=== PATIENT | male | born 1935 | race African-American/Black ===

== ENCOUNTER 2017-12-02 07:26 | Day surgery (SDC) | payer OTHER ==
[2017-11-30 13:12] VITALS: BMI 29.8
[~2017-12-02 07:26] MED LIST: ACETAMINOPHEN 325 MG TABLET (FP) PO PRN; CYCLOPENTOLATE HCL 1% OPHTH SOLN 2 ML BOTTLE OP SCH; KETOROLAC TROMETHAMINE 0.5% EYE DROP 1 DROP DROPS OP SCH; OFLOXACIN 0.3% OPHTHALMIC SOLUTION 5 ML BOTTLE OP SCH; PHENYLEPHRINE 2.5% OPHTH SOLN 15 ML BOTTLE OP SCH; TROPICAMIDE 1% OPHTH SOLN 15 ML BOTTLE OP SCH
[2017-12-02] MEDS ORDERED: CYCLOPENTOLATE HCL 1% OPHTH SOLN 2 ML BOTTLE ONE (07:38)
[2017-12-02] MEDS ORDERED: OFLOXACIN 0.3% OPHTHALMIC SOLUTION 5 ML BOTTLE ONE (07:38)
[2017-12-02] MEDS ORDERED: PHENYLEPHRINE 2.5% OPHTH SOLN 15 ML BOTTLE ONE (07:39)
[2017-12-02] MEDS ORDERED: TROPICAMIDE 1% OPHTH SOLN 15 ML BOTTLE ONE (07:39)
[2017-12-02] MEDS ORDERED: KETOROLAC TROMETHAMINE 0.5% EYE DROP 1 DROP DROPS ONE (07:39)
[2017-12-02 08:03] VITALS: BP 186/99; PULSE 77; TEMP 98
== END 2017-12-02 08:24 | disposition home or self-care (01) ==
LOC: JASU-SURG 07:26
PROVIDERS: ATTEND Ophthalmology
PROC: 3E013GC Introduction of Other Therapeutic Substance into Subcutaneous Tissue, Percutaneous Approach (ICD-10-PCS; principal; 2017-12-02)
DX: Z53.8 Procedure and treatment not carried out for other reasons (principal)
CPT/HCPCS: 82962

== ENCOUNTER 2017-12-16 07:33 | Day surgery (SDC) | payer OTHER ==
[2017-12-15 13:17] VITALS: BMI 29.8
[~2017-12-16 07:33] MED LIST changes: +ACETYLCHOLINE 1:100 INTRA-OCUL 20 MG/2 ML KIT IO ONE; +BUPIVACAINE HCL/PF 0.5% (5MG/ML) 10 ML VIAL RB ONE; +CHONDROITIN SU A/HYALUR SOD 1 KIT IO ONE; -CYCLOPENTOLATE HCL 1% OPHTH SOLN 2 ML BOTTLE OP SCH; +EPINEPHrine/PF 1 MG/1 ML (1:1,000) AMPULE IO ONE; +HYALURONATE SODIUM 14 MG/ML DISP.SYRIN IO ONE; -KETOROLAC TROMETHAMINE 0.5% EYE DROP 1 DROP DROPS OP SCH; +LIDOCAINE HCL 1% PRESERVATIVE FREE - 30ML VIAL IO ONE; +LIDOCAINE HCL 2% JELLY (5 ML/TUBE) TP ONE; -OFLOXACIN 0.3% OPHTHALMIC SOLUTION 5 ML BOTTLE OP SCH; -PHENYLEPHRINE 2.5% OPHTH SOLN 15 ML BOTTLE OP SCH; -TROPICAMIDE 1% OPHTH SOLN 15 ML BOTTLE OP SCH; +TRYPAN BLUE 0.5 ML DISP.SYRIN IO ONE
[2017-12-16] MEDS ORDERED: OFLOXACIN 0.3% OPHTHALMIC SOLUTION 5 ML BOTTLE ONE (07:50)
[2017-12-16] MEDS ORDERED: PHENYLEPHRINE 2.5% OPHTH SOLN 15 ML BOTTLE ONE (07:51)
[2017-12-16] MEDS ORDERED: KETOROLAC TROMETHAMINE 0.5% EYE DROP 1 DROP DROPS ONE (07:51)
[2017-12-16] MEDS ORDERED: CYCLOPENTOLATE HCL 1% OPHTH SOLN 2 ML BOTTLE ONE (07:51)
[2017-12-16] MEDS ORDERED: TROPICAMIDE 1% OPHTH SOLN 15 ML BOTTLE ONE (07:51)
[2017-12-16] MEDS: CYCLOPENTOLATE HCL 1% OPHTH SOLN 2 ML BOTTLE OP SCH ×3 (08:00→08:30)
[2017-12-16] MEDS: KETOROLAC TROMETHAMINE 0.5% EYE DROP 1 DROP DROPS OP SCH ×3 (08:00→08:30)
[2017-12-16] MEDS: OFLOXACIN 0.3% OPHTHALMIC SOLUTION 5 ML BOTTLE OP SCH ×3 (08:00→08:30)
[2017-12-16] MEDS: TROPICAMIDE 1% OPHTH SOLN 15 ML BOTTLE OP SCH ×2 (08:00→08:30)
[2017-12-16] MEDS ORDERED: PHENYLEPHRINE/KETOROLAC 4 ML VIAL IO ONE (08:00)
[2017-12-16] MEDS: PHENYLEPHRINE 2.5% OPHTH SOLN 15 ML BOTTLE OP SCH ×3 (08:00→08:30)
[2017-12-16] MEDS ORDERED: MIDAZOLAM HCL 2 MG/2 ML SINGLE DOSE VIAL ONE (09:30)
[2017-12-16] MEDS ORDERED: LIDOCAINE HCL/PF 2% SDV 5ML VIAL ONE (09:35)
[2017-12-16] MEDS ORDERED: PROPOFOL 20 ML ONE (09:35)
[2017-12-16] MEDS ORDERED: LIDOCAINE HCL/PF 2% SDV 5ML VIAL PNB ONE ×2 (09:40→09:41)
[2017-12-16] MEDS ORDERED: BUPIVACAINE HCL/PF 0.75% 10 ML VIAL PNB ONE ×2 (09:40→09:41)
[2017-12-16] MEDS ORDERED: POVIDONE-IODINE 5% OPHTHALMIC PREP 30 ML SOLUTION OS ONE (09:45)
[2017-12-16] MEDS ORDERED: LIDOCAINE HCL 1% PRESERVATIVE FREE - 30ML VIAL IO ONE (09:53)
[2017-12-16] MEDS ORDERED: CHONDROITIN SU A/HYALUR SOD 1 KIT IO ONE (09:54)
[2017-12-16] MEDS ORDERED: EPINEPHrine/PF 1 MG/1 ML (1:1,000) AMPULE IO ONE (09:56)
[2017-12-16] MEDS ORDERED: ACETAMINOPHEN 325 MG TABLET (FP) ONE (10:47)
[2017-12-16 11:21] VITALS: BP 144/85; PULSE 77; TEMP 97.7
[2017-12-16] MEDS ORDERED: LIDOCAINE HCL/PF 1% SDV 5ML VIAL ONE (11:25)
--- NOTE | 2017-12-16 11:29 | SPEC ---
DATE OF OPERATION: 12/16/2017 PREOPERATIVE DIAGNOSIS: Cataract, left eye. POSTOPERATIVE DIAGNOSIS: Cataract, left eye. PROCEDURE: Phacoemulsification of left cataract with posterior chamber intraocular lens implantation, lens used SN60WF, 21.0 diopter power, serial No. [id number]. SURGEON: Tj Teran M.D. ANESTHESIA: Peribulbar/Modified Van Lint/MAC. COMPLICATIONS: None. PROCEDURE: The patient was brought to the operating room and correctly identified along with the operative site and a correct intraocular lens banuelos. The patient was then given a peribulbar block under sedation with 5 mL of a 1:1 mixture of 2% Lidocaine and 0.5% Bupivacaine. Two to 3 mL of the same mixture was given as a modified Van Lint block. The eye was then prepped and draped in the usual sterile fashion including 5% Betadine solution in the conjunctival sac and an eyelid drape. An eyelid speculum was then placed into the eye. A paracentesis port was created. Viscoelastic was injected to inflate the anterior chamber. A temporal clear corneal wound was created. A continuous circular capsulorrhexis was performed. The nucleus was then hydro-dissected and removed phacoemulsification via the [id number] approach. The remaining cortical material was irrigated and aspirated from the eye. Viscoelastic was injected to inflate the capsular bag. The lens was injected into the capsular bag. Viscoelastic was then irrigated and aspirated from the eye. The intraocular lens was noted to be well centered and covered by the anterior capsular border. All wounds were found to be watertight. Topical Vancomycin was given. The eye patch and shield were placed. The patient was discharged from the operating room in stable condition. Ronald ALEXANDER/[id number]
[2017-12-16] MEDS ORDERED: CHONDROITIN SU A/HYALUR SOD 1 KIT ONE (11:32)
== END 2017-12-16 11:30 | disposition home or self-care (01) ==
LOC: JASU-SURG 07:33
PROVIDERS: ATTEND Ophthalmology
PROC: 08RK3JZ Replacement of Left Lens with Synthetic Substitute, Percutaneous Approach (ICD-10-PCS; principal; 2017-12-16 09:00)
DX: H26.9 Unspecified cataract (principal)
CPT/HCPCS: 82962

== ENCOUNTER 2018-01-27 07:28 | Day surgery (SDC) | payer OTHER ==
[2018-01-26 13:56] VITALS: BMI 29.8
[~2018-01-27 07:28] MED LIST changes: -ACETYLCHOLINE 1:100 INTRA-OCUL 20 MG/2 ML KIT IO ONE; -BUPIVACAINE HCL/PF 0.5% (5MG/ML) 10 ML VIAL RB ONE; -CHONDROITIN SU A/HYALUR SOD 1 KIT IO ONE; -EPINEPHrine/PF 1 MG/1 ML (1:1,000) AMPULE IO ONE; -HYALURONATE SODIUM 14 MG/ML DISP.SYRIN IO ONE; -LIDOCAINE HCL 1% PRESERVATIVE FREE - 30ML VIAL IO ONE; -LIDOCAINE HCL 2% JELLY (5 ML/TUBE) TP ONE; -TRYPAN BLUE 0.5 ML DISP.SYRIN IO ONE
[2018-01-27] MEDS ORDERED: OFLOXACIN 0.3% OPHTHALMIC SOLUTION 5 ML BOTTLE ONE (07:38)
[2018-01-27] MEDS ORDERED: BUPIVACAINE HCL/PF 0.75% 10 ML VIAL ONE (07:39)
[2018-01-27] MEDS ORDERED: CYCLOPENTOLATE HCL 1% OPHTH SOLN 2 ML BOTTLE ONE (07:39)
[2018-01-27] MEDS ORDERED: KETOROLAC TROMETHAMINE 0.5% EYE DROP 1 DROP DROPS ONE (07:39)
[2018-01-27] MEDS ORDERED: TROPICAMIDE 1% OPHTH SOLN 15 ML BOTTLE ONE (07:39)
[2018-01-27] MEDS ORDERED: PHENYLEPHRINE 2.5% OPHTH SOLN 15 ML BOTTLE ONE (07:39)
[2018-01-27] MEDS ORDERED: LIDOCAINE HCL/PF 2% SDV 5ML VIAL ONE (07:39)
[2018-01-27] MEDS: PHENYLEPHRINE 2.5% OPHTH SOLN 15 ML BOTTLE OP SCH ×3 (07:45→07:55)
[2018-01-27] MEDS: CYCLOPENTOLATE HCL 1% OPHTH SOLN 2 ML BOTTLE OP SCH ×2 (07:45→07:50)
[2018-01-27] MEDS ORDERED: PHENYLEPHRINE/KETOROLAC 4 ML VIAL IO ONE (07:45)
[2018-01-27] MEDS: OFLOXACIN 0.3% OPHTHALMIC SOLUTION 5 ML BOTTLE OP SCH ×3 (07:45→07:55)
[2018-01-27] MEDS: TROPICAMIDE 1% OPHTH SOLN 15 ML BOTTLE OP SCH ×3 (07:45→07:55)
[2018-01-27] MEDS: KETOROLAC TROMETHAMINE 0.5% EYE DROP 1 DROP DROPS OP SCH ×3 (07:45→07:55)
[2018-01-27] MEDS ORDERED: MIDAZOLAM HCL 2 MG/2 ML SINGLE DOSE VIAL ONE (08:40)
[2018-01-27] MEDS ORDERED: PROPOFOL 20 ML ONE (08:56)
[2018-01-27] MEDS ORDERED: LIDOCAINE HCL/PF 2% SDV 5ML VIAL PNB ONE ×2 (09:08→09:09)
[2018-01-27] MEDS ORDERED: BUPIVACAINE HCL/PF 0.75% 10 ML VIAL PNB ONE ×2 (09:08→09:09)
[2018-01-27] MEDS ORDERED: CHONDROITIN SU A/HYALUR SOD 1 KIT IO ONE (09:19)
[2018-01-27] MEDS ORDERED: VANCOMYCIN 500 MG VIAL (RESTRICTED TO ID ONLY) IVPB ONE (09:24)
[2018-01-27] MEDS ORDERED: ACETAMINOPHEN 325 MG TABLET (FP) ONE (09:58)
[2018-01-27 10:34] VITALS: BP 145/86; PULSE 79; TEMP 97.7
--- NOTE | 2018-01-27 10:39 | SPEC ---
DATE OF OPERATION: 01/27/2018 PREOPERATIVE DIAGNOSIS: Cataract, right eye. POSTOPERATIVE DIAGNOSIS: Cataract, right eye. PROCEDURE: OPERATION: Phacoemulsification of right cataract with posterior chamber intraocular lens implantation, lens used SN60WF, 21.0 diopter power, serial No. [id number], capsular staining with Trypan blue. SURGEON: Dorothy Martinez M.D. ANESTHESIA: Peribulbar/Modified Van Lint/MAC. COMPLICATIONS: None. DESCRIPTION OF PROCEDURE: The patient was brought to the operating room and correctly identified along with the operative site as well as correct intraocular lens banuelos. The patient was then prepped and draped in the usual sterile fashion including 5% Betadine solution in the conjunctival sac and an eyelid drape. An eyelid speculum was then placed into the operative eye. The eye was inspected and a poor red reflex was noted. A paracentesis port was created and .5 mL of intracameral preservative-free Lidocaine 1% was given. Beneath an air bubble, the capsule was then stained with Trypan blue. The Trypan blue was then irrigated from the eye with balanced salt solution (BBS). Viscoelastic was injected to inflate the anterior chamber. A temporal clear corneal would was created. A continuous circular capsulorrhexis was performed. The nucleus was then hydro-dissected and hydro-delineated was BSS and removed with phacoemulsification via [id number] approach. The remaining cortical material was irrigated and aspirated from the eye. Viscoelastic was injected in the anterior chamber to inflate the capsular bag. The intraocular lens was then injected into the bag. The Viscoelastic was irrigated and aspirated from the eye. All wounds were tested and found to be watertight. No suture was placed. The intraocular lens was noted to be well centered and covered by the anterior capsular border. Topical Vancomycin was given. The eye was patched and shielded. The patient was discharged from the operating room in stable condition. DOROTHY MARTINEZ M.D. HL/[id number]
[2018-01-27] MEDS ORDERED: CHONDROITIN SU A/HYALUR SOD 1 KIT ONE (11:59)
== END 2018-01-27 10:45 | disposition home or self-care (01) ==
LOC: JASU-SURG 07:28
PROVIDERS: ATTEND Ophthalmology
PROC: 08RJ3JZ Replacement of Right Lens with Synthetic Substitute, Percutaneous Approach (ICD-10-PCS; principal; 2018-01-27 09:00)
DX: H26.9 Unspecified cataract (principal)
CPT/HCPCS: 82962

== ENCOUNTER 2020-11-03 16:28 | Inpatient (IN) | payer OTHER ==
[2020-11-03] MEDS ORDERED: LACTATED RINGERS SOLUTION 1,000 ML IV STA (16:52)
[2020-11-03] MEDS ORDERED: ACETAMINOPHEN 1000 MG/100 ML VIAL (NON FORMULARY) IVPB ONE ×2 (16:53→17:05)
[2020-11-03] MEDS ORDERED: ACETAMINOPHEN INJECTION 100 ML IVPB ONE (17:35)
[2020-11-03 17:45] LABS: BASO % 0.4 % (0-2.0); HEMOGLOBIN 11.9 GM/dL (11.7-16.9); LYMPH % 7.1 % (8-40); MCH 28.2 pg (25.7-33.7); MCHC 32.9 g/dl (32.0-35.9); MEAN CELL VOLUME 85.7 fl (80-96); MEAN PLT VOLUME 8.6 fl (7.5-11.1); MONO % 6.5 % (3.8-10.2); PLATELET COUNT 234 10^3/uL (134-434); RDW 13.8 % (11.9-15.9); WHITE BLOOD COUNT 12.1 K/mm3 (4.0-10.0)
[2020-11-03 17:50] LABS: INR 1.11 (0.83-1.09); PROTHROMBIN TIME (PATIENT) 13.7 SEC (9.7-13.0); VENOUS BASE EXCESS -5.2 mmol/L (-2-2); VENOUS PCO2 31.2 mmHg (38-52); VENOUS PH 7.393 (7.310-7.410)
[2020-11-03 17:52] LABS: ACTIVATED PTT 30.8 SECONDS (25.2-36.5)
[2020-11-03] MEDS ORDERED: LOSARTAN POTASSIUM 25 MG TABLET PO ONE (18:04)
[2020-11-03] MEDS ORDERED: amLODIPine BESYLATE 10 MG TABLET (FP) PO ONE (18:04)
[2020-11-03 18:08] LABS: CALCIUM 8.5 mg/dL (8.5-10.1)
[2020-11-03 18:09] LABS: BLOOD UREA NITROGEN 26.2 mg/dL (7-18)
[2020-11-03 18:14] LABS: BILIRUBIN,TOTAL 0.6 mg/dL (0.2-1)
[2020-11-03 18:18] LABS: LACTIC ACID 2.1 mmol/L (0.4-2.0)
[2020-11-03] MEDS ORDERED: LOSARTAN POTASSIUM 50 MG TABLET ONE (18:18)
[2020-11-03] MEDS ORDERED: amLODIPine BESYLATE 5 MG TABLET (FP) ONE (18:19)
[2020-11-03] MEDS ORDERED: CEFTRIAXONE 1,000 MG in DEXTROSE 5%-WATER - 50 ML IVPB ONE (21:04)
[2020-11-03] MEDS ORDERED: AZITHROMYCIN 500 MG TABLET PO ONE (21:04)
[2020-11-03] MEDS ORDERED: AZITHROMYCIN 250 MG TABLET ONE (23:43)
[2020-11-03] MEDS ORDERED: CEFTRIAXONE 1 GM/50 ML BAG ONE (23:43)
[2020-11-04] MEDS ORDERED: ALBUTEROL SO4 2.5/IPRATROPIUM 0.5 INH SOL 3 ML VIAL.NEB. NEB ONE (00:59)
[2020-11-04] MEDS ORDERED: predniSONE 20 MG TABLET (UD) PO ONE (00:59)
[2020-11-04] MEDS ORDERED: SODIUM CHLORIDE 1,000 ML IV SCH ×2 (01:00→20:12)
[2020-11-04] MEDS ORDERED: ACETAMINOPHEN 1000 MG/100 ML VIAL (NON FORMULARY) IVPB PRN ×2 (01:02→20:12)
[2020-11-04] MEDS ORDERED: MELATONIN 5 MG TABLETS PO PRN ×2 (01:03→20:12)
[2020-11-04] MEDS ORDERED: predniSONE 20 MG TABLET (UD) ONE (02:25)
[2020-11-04 02:36] LABS: EPI CELLS 14 /uL (0-25.1); HYALINE CASTS 4 /uL (0-3.1); URINE APPEARANCE CLEAR; URINE BACTERIA 10 /uL (0-1359); URINE BILIRUBIN NEGATIVE (NEGATIVE); URINE COLOR YELLOW; URINE GLUCOSE (UA) NEGATIVE (NEGATIVE); URINE KETONE NEGATIVE (NEGATIVE); URINE LEUK ESTERASE NEGATIVE (NEGATIVE); URINE NITRITE NEGATIVE (NEGATIVE); URINE PROTEIN 4+ (NEGATIVE); URINE RBC 18 /uL (0-23.9); URINE WBC 13 /uL (0-25.8)
[2020-11-04 04:20] VITALS: BMI 30.7
[2020-11-04] MEDS: HEPARIN NA (PORCINE) 5,000 UNITS/ML 1ML VIAL SQ SCH ×3 (06:45→21:17)
[2020-11-04] MEDS: POLYETHYLENE GLYCOL 3350 119 GM BTL PO SCH ×2 (07:01→15:08)
[2020-11-04] MEDS: INSULIN SLIDING SCALE (NOVOLOG) 1 VIAL SQ SCH ×4 (07:04→21:26)
[2020-11-04] MEDS: POLYETHYLENE GLYCOL (HEALTHYLAX) 3350 17 GM PACKET PO SCH ×3 (07:05→21:17)
[2020-11-04 08:32] LABS: HEMATOCRIT 33.9 % (35.4-49); HEMOGLOBIN 11.2 GM/dL (11.7-16.9); MCH 28.1 pg (25.7-33.7); MCHC 33.1 g/dl (32.0-35.9); PLATELET COUNT 192 10^3/uL (134-434); RBC 3.99 M/mm3 (4.00-5.60); RDW 13.9 % (11.9-15.9); WHITE BLOOD COUNT 11.8 K/mm3 (4.0-10.0)
[2020-11-04 09:04] LABS: CALCIUM 8.1 mg/dL (8.5-10.1)
[2020-11-04 09:05] LABS: ALBUMIN 2.6 g/dl (3.4-5.0); BLOOD UREA NITROGEN 28.2 mg/dL (7-18)
[2020-11-04 09:06] LABS: MAGNESIUM 1.6 mg/dL (1.8-2.4)
[2020-11-04 09:07] LABS: CREATININE 2.8 mg/dL (0.55-1.3)
[2020-11-04 09:08] LABS: PHOSPHOROUS 3.2 mg/dL (2.5-4.9)
[2020-11-04 09:09] LABS: BILIRUBIN,TOTAL 1.2 mg/dL (0.2-1); TOT PROT 7.2 g/dl (6.4-8.2)
[2020-11-04] MEDS ORDERED: AZITHROMYCIN IVPB 500 MG/250 ML BAG IVPB SCH (10:00)
[2020-11-04] MEDS ORDERED: LABETALOL HCL 100 MG TABLET (FP) PO SCH (10:00)
[2020-11-04] MEDS ORDERED: CEFTRIAXONE 1 GM in DEXTROSE 5%-WATER - 50 ML IVPB SCH (10:00)
[2020-11-04] MEDS ORDERED: amLODIPine BESYLATE 10 MG TABLET (FP) PO SCH (10:00)
[2020-11-04] MEDS ORDERED: cefTRIAXone SODIUM 1 GM VIAL ONE (10:17)
[2020-11-04] MEDS ORDERED: DEXTROSE 5%-WATER - 50 ML IVPB ONE (10:17)
[2020-11-04 12:51] LABS: ANISOCYTOSIS 0; MACROCYTOSIS 0; PLATELET ESTIMATE NORMAL
[2020-11-04 16:55] LABS: EPI CELLS 9 /uL (0-25.1); HYALINE CASTS 2 /uL (0-3.1); URINE APPEARANCE CLEAR; URINE BACTERIA 27 /uL (0-1359); URINE BILIRUBIN NEGATIVE (NEGATIVE); URINE COLOR YELLOW; URINE GLUCOSE (UA) NEGATIVE (NEGATIVE); URINE KETONE NEGATIVE (NEGATIVE); URINE LEUK ESTERASE NEGATIVE (NEGATIVE); URINE NITRITE NEGATIVE (NEGATIVE); URINE PROTEIN 3+ (NEGATIVE); URINE RBC 42 /uL (0-23.9); URINE WBC 8 /uL (0-25.8)
[2020-11-04] MEDS: LABETALOL HCL 100 MG TABLET (FP) PO SCH (21:17)
[2020-11-04] MEDS: ATORVASTATIN CA 20 MG TABLET (FP) PO SCH (21:17)
[2020-11-04] MEDS ORDERED: ATORVASTATIN CA 20 MG TABLET (FP) PO SCH (22:00)
[2020-11-04] MEDS ORDERED: POLYETHYLENE GLYCOL 3350 119 GM BTL PO SCH (22:00)
[2020-11-05] MEDS ORDERED: ACETAMINOPHEN 500 MG TABLET (FP) PO ONE (04:33)
[2020-11-05] MEDS: HEPARIN NA (PORCINE) 5,000 UNITS/ML 1ML VIAL SQ SCH ×3 (06:12→22:54)
[2020-11-05] MEDS: POLYETHYLENE GLYCOL (HEALTHYLAX) 3350 17 GM PACKET PO SCH ×3 (06:13→22:56)
[2020-11-05] MEDS: INSULIN SLIDING SCALE (NOVOLOG) 1 VIAL SQ SCH ×4 (06:17→23:06)
[2020-11-05] MEDS ORDERED: cefTRIAXone SODIUM 1 GM VIAL ONE (09:40)
[2020-11-05] MEDS ORDERED: DEXTROSE 5%-WATER - 50 ML IVPB ONE (09:40)
[2020-11-05] MEDS ORDERED: PT OWN MED DRAWER 7, Y5N ONE (09:40)
[2020-11-05] MEDS: amLODIPine BESYLATE 10 MG TABLET (FP) PO SCH (10:45)
[2020-11-05] MEDS: LABETALOL HCL 100 MG TABLET (FP) PO SCH ×2 (10:45→22:55)
[2020-11-05] MEDS: CEFTRIAXONE 1 GM in DEXTROSE 5%-WATER - 50 ML IVPB SCH (10:46)
[2020-11-05 10:52] LABS: BLOOD UREA NITROGEN 28.1 mg/dL (7-18); CALCIUM 7.9 mg/dL (8.5-10.1)
[2020-11-05 10:53] LABS: ALBUMIN 2.3 g/dl (3.4-5.0)
[2020-11-05 10:56] LABS: CREATININE 2.7 mg/dL (0.55-1.3)
[2020-11-05 10:57] LABS: TOT PROT 6.7 g/dl (6.4-8.2)
[2020-11-05 10:58] LABS: BILIRUBIN,TOTAL 0.4 mg/dL (0.2-1)
[2020-11-05] MEDS: AZITHROMYCIN IVPB 500 MG/250 ML BAG IVPB SCH (11:39)
[2020-11-05] MEDS ORDERED: FUROSEMIDE 40 MG/4 ML INJECTABLE VIAL IVPUSH ONE (14:30)
[2020-11-05] MEDS: ACETAMINOPHEN 325 MG TABLET (FP) PO PRN (18:37)
[2020-11-05] MEDS: ATORVASTATIN CA 20 MG TABLET (FP) PO SCH (22:55)
[2020-11-06] MEDS: HEPARIN NA (PORCINE) 5,000 UNITS/ML 1ML VIAL SQ SCH ×3 (05:55→21:09)
[2020-11-06] MEDS: INSULIN SLIDING SCALE (NOVOLOG) 1 VIAL SQ SCH ×4 (06:04→21:10)
[2020-11-06] MEDS: POLYETHYLENE GLYCOL (HEALTHYLAX) 3350 17 GM PACKET PO SCH ×3 (06:43→21:10)
[2020-11-06 07:51] LABS: HEMATOCRIT 34.4 % (35.4-49); HEMOGLOBIN 11.5 GM/dL (11.7-16.9); MCH 28.3 pg (25.7-33.7); MCHC 33.5 g/dl (32.0-35.9); MEAN CELL VOLUME 84.6 fl (80-96); MEAN PLT VOLUME 8.5 fl (7.5-11.1); PLATELET COUNT 243 10^3/uL (134-434); RBC 4.06 M/mm3 (4.00-5.60); RDW 13.9 % (11.9-15.9); WHITE BLOOD COUNT 7.5 K/mm3 (4.0-10.0)
[2020-11-06 08:10] LABS: CALCIUM 8.6 mg/dL (8.5-10.1)
[2020-11-06 08:14] LABS: CREATININE 2.6 mg/dL (0.55-1.3)
[2020-11-06] MEDS ORDERED: cefTRIAXone SODIUM 1 GM VIAL ONE (09:02)
[2020-11-06] MEDS ORDERED: DEXTROSE 5%-WATER - 50 ML IVPB ONE (09:02)
[2020-11-06] MEDS: CEFTRIAXONE 1 GM in DEXTROSE 5%-WATER - 50 ML IVPB SCH (09:11)
[2020-11-06] MEDS: amLODIPine BESYLATE 10 MG TABLET (FP) PO SCH (09:11)
[2020-11-06] MEDS: LABETALOL HCL 100 MG TABLET (FP) PO SCH ×2 (09:11→21:10)
[2020-11-06] MEDS: AZITHROMYCIN IVPB 500 MG/250 ML BAG IVPB SCH (09:27)
[2020-11-06] MEDS ORDERED: FUROSEMIDE 40 MG/4 ML INJECTABLE VIAL IVPUSH ONE (13:20)
[2020-11-06] MEDS: ACETAMINOPHEN 325 MG TABLET (FP) PO PRN (15:03)
[2020-11-06] MEDS: ATORVASTATIN CA 20 MG TABLET (FP) PO SCH (21:09)
[2020-11-07] MEDS: INSULIN SLIDING SCALE (NOVOLOG) 1 VIAL SQ SCH ×4 (06:06→21:41)
[2020-11-07] MEDS: POLYETHYLENE GLYCOL (HEALTHYLAX) 3350 17 GM PACKET PO SCH ×3 (06:14→21:41)
[2020-11-07] MEDS: HEPARIN NA (PORCINE) 5,000 UNITS/ML 1ML VIAL SQ SCH ×3 (06:15→21:39)
[2020-11-07 08:12] LABS: ALBUMIN 2.1 g/dl (3.4-5.0); BLOOD UREA NITROGEN 29.3 mg/dL (7-18); CALCIUM 8.5 mg/dL (8.5-10.1)
[2020-11-07 08:16] LABS: CREATININE 2.5 mg/dL (0.55-1.3)
[2020-11-07 08:17] LABS: BILIRUBIN,TOTAL 0.4 mg/dL (0.2-1); TOT PROT 6.6 g/dl (6.4-8.2)
[2020-11-07] MEDS ORDERED: cefTRIAXone SODIUM 1 GM VIAL ONE (09:01)
[2020-11-07] MEDS ORDERED: DEXTROSE 5%-WATER - 50 ML IVPB ONE (09:01)
[2020-11-07] MEDS: CEFTRIAXONE 1 GM in DEXTROSE 5%-WATER - 50 ML IVPB SCH (11:06)
[2020-11-07] MEDS: AZITHROMYCIN IVPB 500 MG/250 ML BAG IVPB SCH (11:06)
[2020-11-07] MEDS: amLODIPine BESYLATE 10 MG TABLET (FP) PO SCH (11:07)
[2020-11-07] MEDS: LABETALOL HCL 100 MG TABLET (FP) PO SCH ×2 (11:07→21:39)
[2020-11-07] MEDS: ALBUTEROL SO4 2.5/IPRATROPIUM 0.5 INH SOL 3 ML VIAL.NEB. NEB SCH ×2 (15:46→20:24)
[2020-11-07] MEDS: ATORVASTATIN CA 20 MG TABLET (FP) PO SCH (21:39)
[2020-11-08] MEDS: ACETAMINOPHEN 325 MG TABLET (FP) PO PRN (03:03)
[2020-11-08] MEDS: POLYETHYLENE GLYCOL (HEALTHYLAX) 3350 17 GM PACKET PO SCH ×3 (05:38→21:24)
[2020-11-08] MEDS: HEPARIN NA (PORCINE) 5,000 UNITS/ML 1ML VIAL SQ SCH ×3 (05:39→21:24)
[2020-11-08] MEDS: INSULIN SLIDING SCALE (NOVOLOG) 1 VIAL SQ SCH ×4 (06:00→21:27)
[2020-11-08] MEDS ORDERED: ACETAMINOPHEN 325 MG TABLET (FP) PO PRN (07:01)
[2020-11-08] MEDS ORDERED: MELATONIN 5 MG TABLETS PO PRN (07:01)
[2020-11-08] MEDS: ALBUTEROL SO4 2.5/IPRATROPIUM 0.5 INH SOL 3 ML VIAL.NEB. NEB SCH ×4 (08:05→20:27)
[2020-11-08] MEDS ORDERED: INSULIN (NOVOLOG) ASPART 100 UNITS/ML 10ML VIAL ONE (09:09)
[2020-11-08] MEDS ORDERED: cefTRIAXone SODIUM 1 GM VIAL ONE (09:10)
[2020-11-08] MEDS ORDERED: DEXTROSE 5%-WATER - 50 ML IVPB ONE (09:10)
[2020-11-08] MEDS: LABETALOL HCL 100 MG TABLET (FP) PO SCH ×2 (09:52→21:24)
[2020-11-08] MEDS: CEFTRIAXONE 1 GM in DEXTROSE 5%-WATER - 50 ML IVPB SCH (09:53)
[2020-11-08] MEDS: amLODIPine BESYLATE 10 MG TABLET (FP) PO SCH (09:53)
[2020-11-08] MEDS: AZITHROMYCIN IVPB 500 MG/250 ML BAG IVPB SCH (10:56)
[2020-11-08] MEDS ORDERED: FUROSEMIDE 40 MG/4 ML INJECTABLE VIAL IVPUSH ONE (11:15)
[2020-11-08 12:08] LABS: ANTIGLOMERULAR BASEMENT MEN.AB 2 units (0-20)
[2020-11-08] MEDS: ATORVASTATIN CA 20 MG TABLET (FP) PO SCH (21:24)
[2020-11-09] MEDS: POLYETHYLENE GLYCOL (HEALTHYLAX) 3350 17 GM PACKET PO SCH ×3 (06:09→21:54)
[2020-11-09] MEDS: HEPARIN NA (PORCINE) 5,000 UNITS/ML 1ML VIAL SQ SCH ×3 (06:10→21:54)
[2020-11-09] MEDS: INSULIN SLIDING SCALE (NOVOLOG) 1 VIAL SQ SCH ×4 (06:11→21:47)
[2020-11-09] MEDS: ALBUTEROL SO4 2.5/IPRATROPIUM 0.5 INH SOL 3 ML VIAL.NEB. NEB SCH ×4 (07:53→20:14)
[2020-11-09 08:02] LABS: BASO % 0.7 % (0-2.0); EOS % 2.6 % (0-4.5); HEMATOCRIT 33.9 % (35.4-49); HEMOGLOBIN 11.4 GM/dL (11.7-16.9); LYMPH % 12.4 % (8-40); MCH 28.5 pg (25.7-33.7); MCHC 33.5 g/dl (32.0-35.9); MEAN CELL VOLUME 85.2 fl (80-96); MEAN PLT VOLUME 8.4 fl (7.5-11.1); MONO % 10.3 % (3.8-10.2); PLATELET COUNT 419 10^3/uL (134-434); RBC 3.98 M/mm3 (4.00-5.60); RDW 13.8 % (11.9-15.9); WHITE BLOOD COUNT 8.2 K/mm3 (4.0-10.0)
[2020-11-09 08:29] LABS: ALBUMIN 2.2 g/dl (3.4-5.0); BLOOD UREA NITROGEN 31.8 mg/dL (7-18); CALCIUM 8.9 mg/dL (8.5-10.1); MAGNESIUM 2.4 mg/dL (1.8-2.4)
[2020-11-09 08:31] LABS: CREATININE 2.3 mg/dL (0.55-1.3)
[2020-11-09 08:33] LABS: BILIRUBIN,TOTAL 0.4 mg/dL (0.2-1)
[2020-11-09] MEDS ORDERED: cefTRIAXone SODIUM 1 GM VIAL ONE (09:02)
[2020-11-09] MEDS ORDERED: DEXTROSE 5%-WATER - 50 ML IVPB ONE (09:03)
[2020-11-09] MEDS: CEFTRIAXONE 1 GM in DEXTROSE 5%-WATER - 50 ML IVPB SCH (09:59)
[2020-11-09] MEDS: AZITHROMYCIN IVPB 500 MG/250 ML BAG IVPB SCH (10:00)
[2020-11-09] MEDS ORDERED: MULTIVITAMINS (DAILY MVI) TABLET (FP) PO SCH (10:00)
[2020-11-09] MEDS: MULTIVITAMINS (DAILY MVI) TABLET (FP) PO SCH (10:01)
[2020-11-09] MEDS: LABETALOL HCL 100 MG TABLET (FP) PO SCH ×2 (10:01→21:54)
[2020-11-09] MEDS: amLODIPine BESYLATE 10 MG TABLET (FP) PO SCH (10:01)
[2020-11-09] MEDS ORDERED: FUROSEMIDE 40 MG/4 ML INJECTABLE VIAL IVPUSH ONE (14:09)
[2020-11-09] MEDS ORDERED: FUROSEMIDE 40 MG/4 ML INJECTABLE VIAL ONE (14:24)
[2020-11-09 18:11] LABS: ATYPICAL pANCA <1:20 titer (Neg:<1:20); C-ANCA <1:20 titer (Neg:<1:20)
[2020-11-09] MEDS: ATORVASTATIN CA 20 MG TABLET (FP) PO SCH (21:54)
[2020-11-10] MEDS: INSULIN SLIDING SCALE (NOVOLOG) 1 VIAL SQ SCH ×4 (06:16→21:23)
[2020-11-10] MEDS: HEPARIN NA (PORCINE) 5,000 UNITS/ML 1ML VIAL SQ SCH ×3 (06:22→21:24)
[2020-11-10] MEDS: POLYETHYLENE GLYCOL (HEALTHYLAX) 3350 17 GM PACKET PO SCH ×3 (06:23→21:23)
[2020-11-10 07:38] LABS: BASO % 1.1 % (0-2.0); EOS % 3.6 % (0-4.5); HEMATOCRIT 32.2 % (35.4-49); HEMOGLOBIN 10.7 GM/dL (11.7-16.9); LYMPH % 14.5 % (8-40); MCH 28.2 pg (25.7-33.7); MCHC 33.2 g/dl (32.0-35.9); MEAN PLT VOLUME 8.4 fl (7.5-11.1); MONO % 11.6 % (3.8-10.2); NEUT % 69.2 % (42.8-82.8); PLATELET COUNT 447 10^3/uL (134-434); RBC 3.78 M/mm3 (4.00-5.60); RDW 13.9 % (11.9-15.9); WHITE BLOOD COUNT 7.1 K/mm3 (4.0-10.0)
[2020-11-10 08:02] LABS: ALBUMIN 2.1 g/dl (3.4-5.0); CALCIUM 8.8 mg/dL (8.5-10.1)
[2020-11-10 08:03] LABS: BLOOD UREA NITROGEN 34.6 mg/dL (7-18); MAGNESIUM 2.3 mg/dL (1.8-2.4)
[2020-11-10 08:06] LABS: CREATININE 2.3 mg/dL (0.55-1.3)
[2020-11-10 08:07] LABS: BILIRUBIN,TOTAL 0.4 mg/dL (0.2-1); TOT PROT 6.5 g/dl (6.4-8.2)
[2020-11-10] MEDS: ALBUTEROL SO4 2.5/IPRATROPIUM 0.5 INH SOL 3 ML VIAL.NEB. NEB SCH ×4 (08:21→20:20)
[2020-11-10] MEDS ORDERED: cefTRIAXone SODIUM 1 GM VIAL ONE (09:14)
[2020-11-10] MEDS ORDERED: DEXTROSE 5%-WATER - 50 ML IVPB ONE (09:14)
[2020-11-10] MEDS: AZITHROMYCIN IVPB 500 MG/250 ML BAG IVPB SCH (09:28)
[2020-11-10] MEDS: CEFTRIAXONE 1 GM in DEXTROSE 5%-WATER - 50 ML IVPB SCH (09:29)
[2020-11-10] MEDS: LABETALOL HCL 100 MG TABLET (FP) PO SCH ×2 (09:33→21:24)
[2020-11-10] MEDS: amLODIPine BESYLATE 10 MG TABLET (FP) PO SCH (09:33)
[2020-11-10] MEDS: MULTIVITAMINS (DAILY MVI) TABLET (FP) PO SCH (09:34)
[2020-11-10] MEDS: ATORVASTATIN CA 20 MG TABLET (FP) PO SCH (21:24)
[2020-11-11] MEDS ORDERED: ACETAMINOPHEN 325 MG TABLET (FP) PO PRN (00:18)
[2020-11-11] MEDS ORDERED: MELATONIN 5 MG TABLETS PO PRN (00:18)
[2020-11-11] MEDS: POLYETHYLENE GLYCOL (HEALTHYLAX) 3350 17 GM PACKET PO SCH ×3 (06:42→21:55)
[2020-11-11] MEDS: HEPARIN NA (PORCINE) 5,000 UNITS/ML 1ML VIAL SQ SCH ×3 (06:42→21:57)
[2020-11-11] MEDS: INSULIN SLIDING SCALE (NOVOLOG) 1 VIAL SQ SCH ×4 (06:43→21:54)
[2020-11-11] MEDS: ALBUTEROL SO4 2.5/IPRATROPIUM 0.5 INH SOL 3 ML VIAL.NEB. NEB SCH ×4 (07:12→21:25)
[2020-11-11 09:00] LABS: ALBUMIN 2.4 g/dl (3.4-5.0); MAGNESIUM 2.6 mg/dL (1.8-2.4)
[2020-11-11 09:03] LABS: CREATININE 2.3 mg/dL (0.55-1.3)
[2020-11-11 09:05] LABS: BILIRUBIN,TOTAL 0.5 mg/dL (0.2-1); TOT PROT 7.3 g/dl (6.4-8.2)
[2020-11-11] MEDS ORDERED: cefTRIAXone SODIUM 1 GM VIAL ONE (10:28)
[2020-11-11] MEDS ORDERED: DEXTROSE 5%-WATER - 50 ML IVPB ONE (10:28)
[2020-11-11] MEDS: CEFTRIAXONE 1 GM in DEXTROSE 5%-WATER - 50 ML IVPB SCH (10:31)
[2020-11-11] MEDS: MULTIVITAMINS (DAILY MVI) TABLET (FP) PO SCH (10:34)
[2020-11-11] MEDS: amLODIPine BESYLATE 10 MG TABLET (FP) PO SCH (10:35)
[2020-11-11] MEDS: LABETALOL HCL 100 MG TABLET (FP) PO SCH ×2 (10:35→21:55)
[2020-11-11] MEDS: AZITHROMYCIN IVPB 500 MG/250 ML BAG IVPB SCH (11:17)
[2020-11-11] MEDS ORDERED: ATORVASTATIN CA 20 MG TABLET (FP) PO SCH (22:00)
[2020-11-12] MEDS: INSULIN SLIDING SCALE (NOVOLOG) 1 VIAL SQ SCH ×2 (06:21→11:32)
[2020-11-12] MEDS: POLYETHYLENE GLYCOL (HEALTHYLAX) 3350 17 GM PACKET PO SCH ×2 (06:21→14:18)
[2020-11-12] MEDS: HEPARIN NA (PORCINE) 5,000 UNITS/ML 1ML VIAL SQ SCH ×2 (06:25→14:18)
[2020-11-12 08:07] LABS: BLOOD UREA NITROGEN 39.6 mg/dL (7-18); CALCIUM 8.6 mg/dL (8.5-10.1)
[2020-11-12 08:08] LABS: ALBUMIN 2.2 g/dl (3.4-5.0)
[2020-11-12 08:11] LABS: CREATININE 2.4 mg/dL (0.55-1.3)
[2020-11-12 08:12] LABS: BILIRUBIN,TOTAL 0.4 mg/dL (0.2-1); TOT PROT 6.6 g/dl (6.4-8.2)
[2020-11-12] MEDS ORDERED: cefTRIAXone SODIUM 1 GM VIAL ONE (08:31)
[2020-11-12] MEDS ORDERED: DEXTROSE 5%-WATER - 50 ML IVPB ONE (08:32)
[2020-11-12] MEDS: ALBUTEROL SO4 2.5/IPRATROPIUM 0.5 INH SOL 3 ML VIAL.NEB. NEB SCH ×3 (08:55→17:25)
[2020-11-12] MEDS: CEFTRIAXONE 1 GM in DEXTROSE 5%-WATER - 50 ML IVPB SCH (09:31)
[2020-11-12] MEDS: LABETALOL HCL 100 MG TABLET (FP) PO SCH (09:32)
[2020-11-12] MEDS: MULTIVITAMINS (DAILY MVI) TABLET (FP) PO SCH (09:32)
[2020-11-12] MEDS: amLODIPine BESYLATE 10 MG TABLET (FP) PO SCH (09:32)
[2020-11-12] MEDS: AZITHROMYCIN IVPB 500 MG/250 ML BAG IVPB SCH (10:17)
[2020-11-12] MEDS ORDERED: INSULIN (NOVOLOG) ASPART 100 UNITS/ML 10ML VIAL ONE (11:31)
[2020-11-12 14:17] VITALS: BP 130/69; PULSE 73; TEMP 98.1
== END 2020-11-12 16:15 | disposition home or self-care (01) | DRG 871 ==
LOC: JER 16:28 → JERBED 21:43 → J6S 11-04 04:06 → J4W 11-05 17:23 → J7W 11-10 20:54
PROVIDERS: ADMIT Internal Medicine; ATTEND Family Medicine
DX: A41.9 Sepsis, unspecified organism (principal); J18.9 Pneumonia, unspecified organism; N17.9 Acute kidney failure, unspecified; J90 Pleural effusion, not elsewhere classified; J98.11 Atelectasis; N40.0 Benign prostatic hyperplasia without lower urinary tract symptoms; E78.00 Pure hypercholesterolemia, unspecified; I12.9 Hypertensive chronic kidney disease with stage 1 through stage 4 chronic kidney disease, or unspecified chronic kidney disease; E11.22 Type 2 diabetes mellitus with diabetic chronic kidney disease; N18.9 Chronic kidney disease, unspecified; E66.9 Obesity, unspecified; Z68.30 Body mass index [BMI] 30.0-30.9, adult; M10.9 Gout, unspecified; K59.00 Constipation, unspecified; Z79.84 Long term (current) use of oral hypoglycemic drugs
CPT/HCPCS: 36415; 71045-TC-FY; 71250-TC; 74176-TC; 74230-TC-FY; 76775-TC; 80048; 80053; 81003; 82436; 82550; 82553; 82570; 82803; 82962; 83516; 83520; 83605; 83735; 84100; 84133; 84155; 84156; 84165; 84300; 84439; 84443; 84484; 84540; 85025; 85027; 85610; 85730; 86038; 86256; 87040; 87070; 87086; 87205; 87804; 87807; 87899; 92611-GN; 93005; 93010; 93225; 93226; 93970-TC; 94640; 94761; 97116-GP; 97162-GP; 99285-25; C9803; J0131; J1644; U0003; U0005

== ENCOUNTER 2023-11-01 19:27 | Inpatient (IN) | payer OTHER ==
[2023-11-01 20:30] LABS: BASO % 0.5 % (0-2.0); EOS % 2.5 % (0-4.5); HEMATOCRIT 31.3 % (35.4-49); HEMOGLOBIN 9.8 GM/dL (11.7-16.9); MCH 26.7 pg (25.7-33.7); MCHC 31.4 g/dl (32.0-35.9); MEAN PLT VOLUME 7.3 fl (7.5-11.1); MONO % 9.5 % (3.8-10.2); NEUT % 76.5 % (42.8-82.8); PLATELET COUNT 237 10^3/uL (134-434); RBC 3.69 M/mm3 (4.00-5.60); WHITE BLOOD COUNT 8.2 K/mm3 (4.0-10.0)
[2023-11-01 20:48] LABS: POTASSIUM 3.7 mmol/L (3.5-5.1)
[2023-11-01 20:51] LABS: CALCIUM 9.8 mg/dL (8.5-10.1)
[2023-11-01 20:52] LABS: ALBUMIN 3.7 g/dl (3.4-5.0); BLOOD UREA NITROGEN 50.6 mg/dL (7-18)
[2023-11-01 20:55] LABS: CREATININE 6.9 mg/dL (0.55-1.3)
[2023-11-01 20:56] LABS: BILIRUBIN,TOTAL 0.4 mg/dL (0.2-1); TOT PROT 7.2 g/dl (6.4-8.2)
[2023-11-01] MEDS ORDERED: levETIRAcetam 500 MG/5 ML INJECTION VIAL IVPB ONE (22:01)
[2023-11-01] MEDS: levETIRAcetam 500 MG/5 ML INJECTION VIAL IVPB ONE (22:38)
[2023-11-01] MEDS ORDERED: hydrALAZINE HCL 50 MG TABLET (FP) ONE (23:24)
[2023-11-01 23:44] LABS: HIV INTERPRETATION NEGATIVE (NEGATIVE)
[2023-11-01] MEDS: hydrALAZINE HCL 50 MG TABLET (FP) PO ONE (23:48)
[2023-11-02] MEDS: NICARDIPINE 25 MG in DEXTROSE 5%-WATER - 240 ML IVPB SCH ×2 (03:19→19:25)
[2023-11-02 05:52] LABS: BASO % 0.1 % (0-2.0); EOS % 1.2 % (0-4.5); HEMATOCRIT 29.3 % (35.4-49); HEMOGLOBIN 9.4 GM/dL (11.7-16.9); LYMPH % 12.4 % (8-40); MCH 27.2 pg (25.7-33.7); MEAN CELL VOLUME 85.1 fl (80-96); MEAN PLT VOLUME 7.2 fl (7.5-11.1); MONO % 10.3 % (3.8-10.2); PLATELET COUNT 226 10^3/uL (134-434); RBC 3.44 M/mm3 (4.00-5.60); RDW 15.7 % (11.9-15.9); WHITE BLOOD COUNT 7.6 K/mm3 (4.0-10.0)
[2023-11-02 06:05] LABS: POTASSIUM 3.6 mmol/L (3.5-5.1)
[2023-11-02 06:06] LABS: CALCIUM 9.4 mg/dL (8.5-10.1)
[2023-11-02 06:07] LABS: BLOOD UREA NITROGEN 53.9 mg/dL (7-18); MAGNESIUM 1.8 mg/dL (1.8-2.4)
[2023-11-02 06:10] LABS: PHOSPHOROUS 5.4 mg/dL (2.5-4.9)
[2023-11-02 06:39] LABS: PROTHROMBIN TIME (PATIENT) 11.3 SEC (9.7-13.0)
[2023-11-02 06:42] LABS: ACTIVATED PTT 26.8 SECONDS (25.2-36.5)
[2023-11-02] MEDS: levETIRAcetam 500 MG/5 ML INJECTION VIAL IVPB SCH (10:20)
[2023-11-02] MEDS: PANTOPRAZOLE SODIUM 40 MG VIAL IVPUSH SCH (10:20)
[2023-11-02] MEDS ORDERED: LIDOCAINE 1%/EPI 1:100000 (20 ML MULTI DOSE VIAL) ONE (11:07)
[2023-11-02] MEDS ORDERED: BUPIVACAINE HCL/PF 0.5% (5MG/ML) 10 ML VIAL ONE (11:08)
[2023-11-02] MEDS ORDERED: GENTAMICIN SO4 80 MG/2 ML VIAL ONE (11:08)
[2023-11-02] MEDS ORDERED: SODIUM CHLORIDE 250 ML IV PRN (11:22)
[2023-11-02] MEDS ORDERED: THROMBIN (BOVINE) 5,000 UNIT VIAL TP ONE (14:54)
[2023-11-02] MEDS ORDERED: SUGAMMADEX SODIUM 200 MG/2 ML VIAL ONE ×2 (16:05→18:19)
[2023-11-02] MEDS ORDERED: LIDOCAINE HCL/PF 2% SDV 5ML VIAL ONE (16:05)
[2023-11-02] MEDS ORDERED: PROPOFOL 20 ML ONE (16:05)
[2023-11-02] MEDS ORDERED: ROCURONIUM BROMIDE 50 MG/5 ML SYRINGE ONE (16:05)
[2023-11-02] MEDS ORDERED: ONDANSETRON 4 MG/2 ML VIAL ONE (16:05)
[2023-11-02] MEDS ORDERED: ceFAZolin SODIUM 1 GM VIAL ONE (16:06)
[2023-11-02] MEDS ORDERED: SEVOFLURANE 250 ML BTL ONE (16:07)
[2023-11-02] MEDS ORDERED: ACETAMINOPHEN INJECTION 100 ML ONE (16:12)
[2023-11-02] MEDS ORDERED: REMIFENTANIL (ULTIVA) HCL 1 MG VIAL ONE (16:12)
[2023-11-02] MEDS: ceFAZolin SODIUM 1 GM VIAL IVPB ONE (17:30)
[2023-11-02] MEDS ORDERED: VANCOMYCIN 1,000 MG VIAL (RESTRICTED TO ID ONLY) ONE (17:36)
[2023-11-02] MEDS: LIDOCAINE 1%/EPI 1:100000 (20 ML MULTI DOSE VIAL) INF ONE (17:41)
[2023-11-02] MEDS: THROMBIN (BOVINE) 5,000 UNIT VIAL TP ONE (18:01)
[2023-11-02 20:39] LABS: BASO % 0.4 % (0-2.0); EOS % 2.1 % (0-4.5); HEMATOCRIT 29.8 % (35.4-49); HEMOGLOBIN 9.5 GM/dL (11.7-16.9); LYMPH % 11.8 % (8-40); MCH 26.9 pg (25.7-33.7); MCHC 31.8 g/dl (32.0-35.9); MEAN CELL VOLUME 84.6 fl (80-96); MEAN PLT VOLUME 7.5 fl (7.5-11.1); MONO % 10.4 % (3.8-10.2); NEUT % 75.3 % (42.8-82.8); PLATELET COUNT 222 10^3/uL (134-434); RBC 3.53 M/mm3 (4.00-5.60); RDW 15.6 % (11.9-15.9); WHITE BLOOD COUNT 6.7 K/mm3 (4.0-10.0)
[2023-11-02 21:23] LABS: POTASSIUM 3.6 mmol/L (3.5-5.1)
[2023-11-02 21:25] LABS: CALCIUM 9.2 mg/dL (8.5-10.1); MAGNESIUM 1.7 mg/dL (1.8-2.4)
[2023-11-02 21:26] LABS: BLOOD UREA NITROGEN 23.1 mg/dL (7-18)
[2023-11-02 21:28] LABS: CREATININE 4.2 mg/dL (0.55-1.3); PHOSPHOROUS 3.7 mg/dL (2.5-4.9)
[2023-11-02] MEDS ORDERED: CHLORHEXIDINE GLUCONATE 4% CLEANSER FOR DECOLONIZATION TP SCH (22:00)
[2023-11-02] MEDS ORDERED: MUPIROCIN 2% TOPICAL OINTMENT FOR DECOLONIZATION NS SCH (22:00)
[2023-11-02] MEDS: MAGNESIUM SULF 50% (8.12 MEQ/2 ML-1 GM VIAL) IVPB ONE (23:16)
[2023-11-02] MEDS: KCL 10 MEQ IVPB 10 MEQ/100 ML INFUS.BAG IVPB SCH (23:16)
[2023-11-02] MEDS: ACETAMINOPHEN 1000 MG/100 ML BAG IVPB PRN (23:45)
[2023-11-03] MEDS: CEFAZOLIN 1 GM in DEXTROSE 5%-WATER - 50 ML IVPB SCH (01:28)
[2023-11-03] MEDS ORDERED: HYDROmorphone HCl 2 MG/ML VIAL IVPUSH PRN (03:46)
[2023-11-03] MEDS: HYDROmorphone HCl 2 MG/ML VIAL IVPUSH PRN (03:54)
[2023-11-03 08:30] LABS: EPI CELLS 4 /uL (0-25.1); HYALINE CASTS 0 /uL (0-3.1); URINE APPEARANCE CLEAR; URINE BACTERIA 7 /uL (0-1359); URINE BILIRUBIN NEGATIVE (NEGATIVE); URINE COLOR YELLOW; URINE GLUCOSE (UA) NEGATIVE (NEGATIVE); URINE KETONE NEGATIVE (NEGATIVE); URINE LEUK ESTERASE NEGATIVE (NEGATIVE); URINE NITRITE NEGATIVE (NEGATIVE); URINE PROTEIN 3+ (NEGATIVE); URINE RBC 12 /uL (0-23.9); URINE UROBILINOGEN 0.2 mg/dL (0.2-1.0); URINE WBC 5 /uL (0-25.8)
[2023-11-03 08:36] LABS: BASO % 0.5 % (0-2.0); EOS % 2.5 % (0-4.5); HEMATOCRIT 27.8 % (35.4-49); LYMPH % 9.7 % (8-40); MCH 27.6 pg (25.7-33.7); MCHC 32.3 g/dl (32.0-35.9); MEAN CELL VOLUME 85.3 fl (80-96); MEAN PLT VOLUME 7.6 fl (7.5-11.1); MONO % 10.2 % (3.8-10.2); NEUT % 77.1 % (42.8-82.8); PLATELET COUNT 213 10^3/uL (134-434); RBC 3.25 M/mm3 (4.00-5.60); WHITE BLOOD COUNT 7.3 K/mm3 (4.0-10.0)
[2023-11-03 08:45] LABS: POTASSIUM 4.2 mmol/L (3.5-5.1)
[2023-11-03 08:47] LABS: CALCIUM 8.8 mg/dL (8.5-10.1); MAGNESIUM 2.3 mg/dL (1.8-2.4)
[2023-11-03 08:50] LABS: CREATININE 4.9 mg/dL (0.55-1.3)
[2023-11-03 08:51] LABS: PHOSPHOROUS 4.4 mg/dL (2.5-4.9)
[2023-11-03 08:52] LABS: BILIRUBIN,TOTAL 0.3 mg/dL (0.2-1)
[2023-11-03] MEDS: LABETALOL HCL 100 MG TABLET (FP) PO SCH (16:50)
[2023-11-03] MEDS: HEPARIN NA (PORCINE) 5,000 UNITS/ML 1ML VIAL SQ SCH (22:22)
[2023-11-03] MEDS: LABETALOL HCL 200 MG TABLET (FP) PO SCH (22:22)
[2023-11-04 08:00] LABS: HEMATOCRIT 27.5 % (35.4-49); HEMOGLOBIN 8.6 GM/dL (11.7-16.9); MCH 26.9 pg (25.7-33.7); MCHC 31.3 g/dl (32.0-35.9); MEAN CELL VOLUME 85.9 fl (80-96); MEAN PLT VOLUME 7.4 fl (7.5-11.1); PLATELET COUNT 218 10^3/uL (134-434); RBC 3.21 M/mm3 (4.00-5.60); RDW 15.7 % (11.9-15.9); WHITE BLOOD COUNT 6.5 K/mm3 (4.0-10.0)
[2023-11-04 08:13] LABS: POTASSIUM 4.2 mmol/L (3.5-5.1)
[2023-11-04 08:18] LABS: CALCIUM 9.1 mg/dL (8.5-10.1)
[2023-11-04 08:19] LABS: ALBUMIN 2.8 g/dl (3.4-5.0); MAGNESIUM 2.1 mg/dL (1.8-2.4)
[2023-11-04 08:21] LABS: PHOSPHOROUS 5.6 mg/dL (2.5-4.9)
[2023-11-04 08:22] LABS: BILIRUBIN,TOTAL 0.3 mg/dL (0.2-1)
[2023-11-04 08:23] LABS: TOT PROT 5.8 g/dl (6.4-8.2)
[2023-11-04] MEDS: EPOETIN ALFA-EPBX 4,000 UNIT/ML VIAL IVPUSH ONE (09:10)
[2023-11-04] MEDS ORDERED: SODIUM CHLORIDE 250 ML IV PRN (10:00)
[2023-11-04] MEDS: amLODIPine BESYLATE 10 MG TABLET (FP) PO SCH (12:15)
[2023-11-04] MEDS ORDERED: HYDROmorphone HCl 2 MG/ML VIAL IVPUSH PRN ×2 (18:00)
[2023-11-04] MEDS: levETIRAcetam 500 MG/5 ML INJECTION VIAL IVPB SCH (21:23)
[2023-11-04] MEDS: LABETALOL HCL 200 MG TABLET (FP) PO SCH (21:23)
[2023-11-04] MEDS: HEPARIN NA (PORCINE) 5,000 UNITS/ML 1ML VIAL SQ SCH (21:25)
[2023-11-04] MEDS ORDERED: HYDROmorphone HCL CARPU-JECT 2 MG/1 ML DISP.SYRIN IVPUSH PRN ×2 (23:37)
[2023-11-05] MEDS: amLODIPine BESYLATE 10 MG TABLET (FP) PO SCH (08:13)
[2023-11-05] MEDS ORDERED: ACETAMINOPHEN 500 MG TABLET (FP) PO PRN (08:35)
[2023-11-05] MEDS ORDERED: PANTOPRAZOLE SODIUM 40 MG VIAL IVPUSH SCH (10:00)
[2023-11-05] MEDS ORDERED: levETIRAcetam 500 MG TABLET (FP) PO PRN ×2 (10:08→10:27)
[2023-11-05] MEDS: PANTOPRAZOLE 40 MG TABLET PO SCH (10:10)
[2023-11-05] MEDS: levETIRAcetam 500 MG TABLET (FP) PO SCH ×2 (12:12→12:15)
[2023-11-05 12:16] LABS: HEMATOCRIT 26.3 % (35.4-49); HEMOGLOBIN 8.2 GM/dL (11.7-16.9); MCH 26.4 pg (25.7-33.7); MCHC 31.1 g/dl (32.0-35.9); MEAN CELL VOLUME 84.7 fl (80-96); MEAN PLT VOLUME 7.5 fl (7.5-11.1); PLATELET COUNT 154 10^3/uL (134-434); RDW 16.2 % (11.9-15.9); WHITE BLOOD COUNT 7.1 K/mm3 (4.0-10.0)
[2023-11-05 12:44] LABS: CHLORIDE 103 mmol/L (98-107); POTASSIUM 3.6 mmol/L (3.5-5.1); SODIUM 139 mmol/L (136-145)
[2023-11-05 12:46] LABS: CALCIUM 8.7 mg/dL (8.5-10.1)
[2023-11-05 12:47] LABS: ALBUMIN 2.6 g/dl (3.4-5.0); ANION GAP 8 mmol/L (4-13); CO2 28 mmol/L (21-32); GLUCOSE,RANDOM 116 mg/dL (74-106)
[2023-11-05 12:50] LABS: PHOSPHOROUS 3.7 mg/dL (2.5-4.9); SGOT/AST 9 U/L (15-37); SGPT/ALT < 6 U/L (13-61)
[2023-11-05 12:51] LABS: BILIRUBIN,TOTAL 0.4 mg/dL (0.2-1)
[2023-11-05 12:52] LABS: ALK PHOS 53 U/L (45-117); TOT PROT 5.8 g/dl (6.4-8.2)
[2023-11-05] MEDS: hydrALAZINE HCL 25 MG TABLET (FP) PO SCH (15:22)
[2023-11-05] MEDS ORDERED: SODIUM CHLORIDE 250 ML IV PRN (16:38)
[2023-11-05] MEDS: hydrALAZINE HCL 25 MG TABLET (FP) PO ONE (18:08)
[2023-11-05] MEDS: hydrALAZINE HCL 50 MG TABLET (FP) PO SCH (21:18)
[2023-11-05] MEDS: ATORVASTATIN CA 20 MG TABLET (FP) PO SCH (21:18)
[2023-11-06] MEDS: hydrALAZINE HCL 25 MG TABLET (FP) PO ONE (02:55)
[2023-11-06 06:55] VITALS: RESP 18
[2023-11-06 13:27] VITALS: BMI 26.6
[2023-11-06] MEDS: hydrALAZINE HCL 25 MG TABLET (FP) PO SCH (14:33)
[2023-11-06] MEDS: HEPARIN NA (PORCINE) 5,000 UNITS/ML 1ML VIAL SQ SCH (14:33)
[2023-11-06 14:34] VITALS: BP 139/55; PULSE 90; TEMP 98.8
[2023-11-06] MEDS ORDERED: EPOETIN ALFA-EPBX 10,000 UNIT/ML VIAL SQ ONE (16:38)
== END 2023-11-06 16:28 | disposition home or self-care (01) | DRG 25 ==
LOC: JER 19:27 → JERBED 21:52 → JICU 23:53 → J6W 11-04 17:47
PROVIDERS: ADMIT Internal Medicine Pulmonary Disease; ATTEND Internal Medicine
PROC: 05HB33Z Insertion of Infusion Device into Right Basilic Vein, Percutaneous Approach (ICD-10-PCS; 2023-11-02)
PROC: 00C40ZZ Extirpation of Matter from Intracranial Subdural Space, Open Approach (ICD-10-PCS; principal; 2023-11-02 15:00)
PROC: 5A1D70Z Performance of Urinary Filtration, Intermittent, Less than 6 Hours Per Day (ICD-10-PCS; 2023-11-04)
DX: I62.01 Nontraumatic acute subdural hemorrhage (principal); N18.6 End stage renal disease; E87.1 Hypo-osmolality and hyponatremia; I13.2 Hypertensive heart and chronic kidney disease with heart failure and with stage 5 chronic kidney disease, or end stage renal disease; I62.03 Nontraumatic chronic subdural hemorrhage; R56.9 Unspecified convulsions; I50.9 Heart failure, unspecified; E11.22 Type 2 diabetes mellitus with diabetic chronic kidney disease; N40.0 Benign prostatic hyperplasia without lower urinary tract symptoms; Z99.2 Dependence on renal dialysis
CPT/HCPCS: 0241U-QW; 36415; 70450-TC; 71045-TC-FY; 80048; 80053; 81003; 82962; 83605; 83735; 84100; 84484; 85025; 85027; 85610; 85730; 86803; 86850; 86900; 86901; 86922; 87086; 87340; 87389; 93005; 93010; 94010; 97116-GP; 97161-GP; 99285-25; C1713; C1889; J0131; J1644; Q5106

== ENCOUNTER 2023-11-07 13:25 | Emergency (ER) | payer OTHER ==
[2023-11-07 13:36] VITALS: BP 120/65; PULSE 79; RESP 16; TEMP 98.4; BMI 26.5
== END 2023-11-07 14:05 | disposition home or self-care (01) ==
LOC: JER 13:25
DX: Z45.2 Encounter for adjustment and management of vascular access device (principal)
CPT/HCPCS: 99282-25